=== PATIENT | male | born 1985 | race Caucasian/White ===

== ENCOUNTER 2018-11-28 08:29 | Emergency (ER) | payer BC, MEDICAID ==
--- NOTE | 2018-11-28 09:19 | EDM.PDOC ---
ED HPI GENERAL MEDICAL PROBLEM - General Chief Complaint: General Stated Complaint: right abd pain with coughing Time Seen by Provider: 11/28/18 09:14 Source of Information: Reports: Patient History Limitations: Reports: No Limitations - History of Present Illness INITIAL COMMENTS - FREE TEXT/NARRATIVE: This patient is a 33 year old male that presents to the ER. Patient reports started last night having RUQ pain. Patient reports the pain was constant last night, then today the pain has improved and is now only when he coughs. Patient reports that he also has had some mild drainage and cough since yesterday. Patient reports that it feels like he pulled a muscle in his belly, but is concerned to ensure its not his appendix. The patient denies n, v, d, f, urinary /bowel changes. Onset Date: 11/27/18 Duration: Day(s): (1) Location: Reports: Abdomen Quality: Reports: Ache Severity: Mild Improves with: Reports: Immobilization Worsens with: Reports: Other (cough) Associated Symptoms: Reports: Cough. Denies: Confusion, Chest Pain, cough w sputum, Diaphoresis, Fever/Chills, Headaches, Loss of Appetite, Malaise, Nausea/ Vomiting, Rash, Seizure, Shortness of Breath, Syncope, Weakness Right Abdomen Pain Score (Numeric/FACES): 4 - Related Data Allergies Allergy/AdvReac Type Severity Reaction Status Date / Time No Known Allergies Allergy Verified 11/28/18 08:30 Home Meds: Home Meds . [No Known Home Meds] 11/28/18 [History] Past Medical History - Past Health History Medical/Surgical History: Denies Medical/Surgical History Social & Family History - Tobacco Use Smoking Status *Q: Current Every Day Smoker Years of Tobacco use: 20 Packs/Tins Daily: 0.5 ED ROS GENERAL - Review of Systems Review Of Systems: See Below Constitutional: Reports: No Symptoms HEENT: Reports: Rhinitis. Denies: Throat Pain, Throat Swelling Respiratory: Reports: Cough. Denies: Shortness of Breath, Wheezing, Pleuritic Chest Pain, Sputum Cardiovascular: Reports: No Symptoms Endocrine: Reports: No Symptoms GI/Abdominal: Reports: Abdominal Pain. Denies: Constipation, Diarrhea, Decreased Appetite, Distension, Nausea, Vomiting : Reports: No Symptoms. Denies: Discharge, Dysuria, Flank Pain, Frequency, Pain, Urgency, Urinary Retention Musculoskeletal: Reports: No Symptoms Skin: Reports: No Symptoms Neurological: Reports: No Symptoms Psychiatric: Reports: No Symptoms Hematologic/Lymphatic: Reports: No Symptoms Immunologic: Reports: No Symptoms ED EXAM, GENERAL - Physical Exam Exam: See Below Exam Limited By: No Limitations General Appearance: Alert, WD/WN, No Apparent Distress Eye Exam: Bilateral Eye: Normal Inspection, PERRL Ears: Normal External Exam, Normal Canal, Hearing Grossly Normal, Normal TMs Ear Exam: Bilateral Ear: Auricle Normal, Canal Normal, TM normal Nose: Normal Inspection, Normal Mucosa, No Blood Throat/Mouth: Normal Inspection, Normal Lips, Normal Teeth, Normal Gums, Normal Oropharynx, Normal Voice, No Airway Compromise Head: Atraumatic, Normocephalic Neck: Normal Inspection, Supple, Non-Tender, Full Range of Motion Respiratory/Chest: No Respiratory Distress, Lungs Clear, Normal Breath Sounds, No Accessory Muscle Use, Chest Non-Tender Cardiovascular: Normal Peripheral Pulses, Regular Rate, Rhythm, No Edema, No Gallop, No JVD, No Murmur, No Rub Peripheral Pulses: 2+: Radial (L), Radial (R), Posterior Tibial (L), Posterior Tibial (R) GI/Abdominal: Normal Bowel Sounds, Soft, No Organomegaly, No Distention, No Abnormal Bruit, No Mass, Pelvis Stable, Tender (mild RUQ). No: Distended, Guarding, Rigid, Rebound, Abnormal Bowel Sounds, Hernia, Mass, Hepatomegaly, Splenomegaly (Male) Exam: Deferred Rectal (Males) Exam: Deferred Back Exam: Normal Inspection, Full Range of Motion. No: CVA Tenderness (L), CVA Tenderness (R) Extremities: Normal Inspection, Normal Range of Motion, Non-Tender, No Pedal Edema, Normal Capillary Refill Neurological: Alert, Oriented, Normal Cognition, Normal Gait, No Motor/Sensory Deficits Psychiatric: Normal Affect, Normal Mood Skin Exam: Warm, Dry, Intact, Normal Color, No Rash Lymphatic: No Adenopathy Course - Vital Signs Last Recorded V/S: Last Vital Signs Temp 97.9 F 11/28/18 08:31 Pulse 88 11/28/18 08:31 Resp 18 11/28/18 08:31 BP 153/83 H 11/28/18 08:31 Pulse Ox 97 11/28/18 08:31 - Orders/Labs/Meds Labs: Laboratory Tests 11/28/18 11/28/18 Range/Units 09:14 09:14 WBC 6.5 (5.0-10.0) 10^3/uL RBC 4.99 (4.50-6.00) 10^6/uL Hgb 15.9 (14.0-18.0) g/dL Hct 45.3 (40.0-54.0) % MCV 90.8 (82.0-94.0) fL MCH 31.9 (27.0-32.0) pg MCHC 35.1 (33.0-38.0) g/dL RDW Coeff of Jessie 12.0 (11.0-15.0) % Plt Count 187 (150-400) 10^3/uL Neut % (Auto) 64.0 (35-85) % Lymph % (Auto) 18.3 (10-55) % Elk % (Auto) 12.3 (0-16) % Eos % (Auto) 4.9 (0-5) % Baso % (Auto) 0.5 (0-3) % Neut # (Auto) 4.18 (1.80-7.00) 10^3/uL Lymph # (Auto) 1.19 (1.00-4.80) 10^3/uL Elk # (Auto) 0.80 (0.00-0.80) 10^3/uL Eos # (Auto) 0.32 (0.00-0.45) 10^3/uL Baso # (Auto) 0.03 10^3/uL Sodium 140 (136-145) mEq/L Potassium 4.6 (3.5-5.0) mEq/L Chloride 104 (98-106) mEq/L Carbon Dioxide 28 (21-32) mmol/L BUN 18 (7-18) mg/dL Creatinine 1.1 (0.7-1.3) mg/dL Est Cr Clr Drug Dosing 84.58 mL/min Estimated GFR (MDRD) > 60 (>=60) mL/min Glucose 109 H (75-99) mg/dL Calcium 9.2 (8.4-10.1) mg/dL Total Bilirubin 0.5 (0.0-1.0) mg/dL AST 60 H (15-37) U/L ALT 162 H (12-78) U/L Alkaline Phosphatase 82 (46-116) U/L Total Protein 8.1 (6.4-8.2) g/dL Albumin 4.2 (3.4-5.0) g/dL - Re-Assessments/Exams Free Text/Narrative Re-Assessment/Exam: 11/28/18 10:04 Patient liver enzymes are elevated. Patient reports he rarely drinks. Denies any history of pancreatitis or or other abdominal histories. Denies pain after eating or pain changes with diet or radiation to back. Patient reports his pain currently is not present. No fever, no wbc elevation. No US capabilities on weekend. Discussed results with patient and needed US and followup. He reports he will followup and have done in [place]. Educated to return if pain returns , worsens, fever, vomiting or any other concerns. Departure - Departure Time of Disposition: 10:06 Disposition: Home, Self-Care 01 Condition: Good Clinical Impression: Elevated liver enzymes Abdominal muscle strain Qualifiers: Encounter type: initial encounter Qualified Code(s): S39.011A - Strain of muscle, fascia and tendon of abdomen, initial encounter - Discharge Information *PRESCRIPTION DRUG MONITORING PROGRAM REVIEWED*: Not Applicable *COPY OF PRESCRIPTION DRUG MONITORING REPORT IN PATIENT JOSÉ LUIS: Not Applicable Instructions: Liver Function Tests, Muscle Strain, [id number] Referrals: PCP,Unknown [Primary Care Provider] - Forms: ED Department Discharge Additional Instructions: Followup with primary care provider for possible Ultrasound and followup Return to the ER for worsening of condition or any emergent concerns such as vomiting, fever, worsening of pain, or other concerns Motrin for pain Avoid Tylenol Avoid spicy, greasy foods - Assessment/Plan Plan: PLEASE SEE RN NOTE FOR PFSH.
[2018-11-28 09:39] LABS: CHLORIDE,CL 104 mEq/L (98-106); SODIUM,NA 140 mEq/L (136-145)
== END 2018-11-28 10:15 | disposition home or self-care (01) ==
LOC: CC.ED 08:29
DX: S39.011A Strain of muscle, fascia and tendon of abdomen, initial encounter (principal); R94.5 Abnormal results of liver function studies; F17.210 Nicotine dependence, cigarettes, uncomplicated; X58.XXXA Exposure to other specified factors, initial encounter
CPT/HCPCS: 36415; 80053; 85025; 99283